=== PATIENT | female | born 1960 | race Caucasian/White ===

== ENCOUNTER 2020-03-25 06:50 | Outpatient (NON) | payer OTHER, SELFPAY ==
[2020-03-25 18:05] LABS: SARS-CoV-2 RNA PCR Negative
== END 2020-03-25 06:51 ==
LOC: ANHCOVIDDT 06:56
PROVIDERS: Visit Provider Family Medicine
DX: Z20.828 Contact with and (suspected) exposure to other viral communicable diseases (principal); R05 Cough
CPT/HCPCS: 87635; C9803; U0003

== ENCOUNTER → 2020-10-02 13:29 | Outpatient (CLI) | payer OTHER, SELFPAY ==
--- NOTE | ~2020-10-02 | MM_ITS ---
EXAMINATION: MM screening luis BI w brant HISTORY: Screening TECHNIQUE: Craniocaudal and mediolateral oblique 3-D tomosynthesis images were obtained and synthetic 2-D images were generated. CAD analysis was submitted and interpreted. COMPARISON: Comparison to multiple prior studies sequentially, with oldest reviewed study dated 10/2012. BREAST PARENCHYMAL COMPOSITION: Breast composed of scattered areas of fibroglandular density. FINDINGS: There are developing asymmetries lateral aspect of both breast on CC view only. There are n o suspicious calcifications. IMPRESSION: 1. Developing bilateral breast asymmetries lateral aspect of both breasts on CC views. 2. Additional mammographic views and possible breast ultrasound are recommended. BI-RADS Category 0: Incomplete: Needs additional imaging evaluation. Reviewed, dictated and finalized at location A. IMPRESSION: 1. Developing bilateral breast asymmetries lateral aspect of both breasts on CC views. 2. Additional mammographic views and possible breast ultrasound are recommended . BI-RADS Category 0: Incomplete: Needs additional imaging evaluation.
== END ==
PROVIDERS: Visit Provider Obstetrics & Gynecology
DX: Z12.31 Encounter for screening mammogram for malignant neoplasm of breast (principal); R92.8 Other abnormal and inconclusive findings on diagnostic imaging of breast
CPT/HCPCS: 77063; 77067

== ENCOUNTER → 2020-10-25 09:17 | Outpatient (CLI) | payer OTHER, SELFPAY ==
--- NOTE | ~2020-10-25 | MMUS_ITS ---
EXAMINATION: MM diagnostic mammo BI, US breast BI complete HISTORY: Developing bilateral breast mammographic asymmetries reported on 10/19/2020 bilateral screeni ng mammogram TECHNIQUE: Additional Full field ML and spot3-D tomosynthesis images of both breasts were performed a nd synthetic 2-D images were generated. Rolled medial and lateral craniocaudal views of both breasts. CAD analysis was submitted and interpreted. Bilateral complete breast ultrasound examination. COMPARISON: 10/02/2020, 03/01/2018, 02/10/2018 bilateral digital screening mammogram examinations MAMMOGRAM FINDINGS: No suspicious mass or architectural distortion, malignant calcification, skin thi ckening or retraction is detected. ULTRASOUND FINDINGS: No suspicious mass or shadowing of either breast is detected. IMPRESSION: 1. No mammographic evidence of malignancy 2. Routine mammographic screening is recommended. BI-RADS Category 1: Negative And Reviewed, dictated and finalized at location A. IMPRESSION: 1. No mammographic evidence of malignancy 2. Routine mammographic screening is recommended. BI-RADS Category 1: Negative And
== END ==
PROVIDERS: Visit Provider Obstetrics & Gynecology
DX: R92.8 Other abnormal and inconclusive findings on diagnostic imaging of breast (principal)
CPT/HCPCS: 76641; 77066

== ENCOUNTER → 2022-06-11 12:20 | Outpatient (CLI) | payer OTHER, SELFPAY ==
--- NOTE | ~2022-06-11 | MM_ITS ---
EXAMINATION: MM screening luis BI w brant HISTORY: Screening mammogram TECHNIQUE: Craniocaudal and mediolateral oblique 3-D tomosynthesis images were obtained and synthetic 2-D images were generated. CAD analysis was submitted and interpreted. COMPARISON: 10/25/2020 bilateral diagnostic mammogram and bilateral complete breast ultrasound 10/02/2020, 03/01/2019 bilateral screening mammogram examinations BREAST PARENCHYMAL COMPOSITION: There are scattered areas of fibroglandular density. FINDINGS: There is no evidence of suspicious mass, calcification, or architectural distortion to sugg est malignancy in either breast. There has been no suspicious interval change. IMPRESSION: 1. No mammographic evidence of malignancy. 2. Recommend routine screening mammography in one year. BI-RADS Category 1: Negative Reviewed, dictated and finalized at location A. RVISOR FRAME SAMPLE AND PATTERN
== END ==
PROVIDERS: PCP Family Medicine; Visit Provider Obstetrics & Gynecology
DX: Z12.31 Encounter for screening mammogram for malignant neoplasm of breast (principal)
CPT/HCPCS: 77063; 77067

== ENCOUNTER 2023-08-07 12:27 | Outpatient (CLI) | payer OTHER, SELFPAY ==
--- NOTE | ~2023-08-07 | MM_ITS ---
EXAMINATION: MM screening luis BI w brant HISTORY: Screening mammogram TECHNIQUE: Craniocaudal and mediolateral oblique 3-D tomosynthesis images were obtained and synthetic 2-D images were generated. CAD analysis was submitted and interpreted. COMPARISON: 06/11/2022 bilateral screening mammogram 10/25/2020 diagnostic bilateral mammogram and bilateral complete breast ultrasound examination 10/02/2020, 03/01/2019 bilateral screening mammogram examinations BREAST PARENCHYMAL COMPOSITION: There are scattered areas of fibroglandular density. FINDINGS: There is no evidence of suspicious mass, calcification, or architectural distortion to sugg est malignancy in either breast. There has been no suspicious interval change. IMPRESSION: 1. No mammographic evidence of malignancy. 2. Recommend routine screening mammography in one year. BI-RADS Category 1: Negative Reviewed, dictated and finalized at location A. 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
== END 2023-08-07 12:28 ==
LOC: MICIMG 12:27
PROVIDERS: PCP Obstetrics & Gynecology; Visit Provider Obstetrics & Gynecology
DX: Z12.31 Encounter for screening mammogram for malignant neoplasm of breast (principal)
CPT/HCPCS: 77063; 77067

== ENCOUNTER 2023-09-25 06:49 | Day surgery (SDC) | payer OTHER, SELFPAY ==
[2023-09-01 15:15] VITALS: BMI 29.1
[2023-09-19 10:32] VITALS: BMI 27.7
[2023-09-25 07:21] VITALS: BP 118/83; PULSE 75; RESP 18; TEMP 36.9; O2SAT 99; BMI 28.0
--- NOTE | 2023-09-25 07:24 | WPDANESEPPF ---
Anes - Initial Pre Proc Eval Procedure: Operation Date: 09/25/23 08:30 Proposed Procedures p Screening Colonoscopy - Sunday Pryor MD Date/Time: 09/25/23 07:24 Surgeon: Sunday Pryor MD Pre Op Diagnosis: Neoplasm screening Patient Data Age: 63 Gender: F Height: 1.68 m Weight: 78.8 kg Last Vital Signs Temp 36.9 C 09/25/23 07:21 Pulse 75 09/25/23 07:21 Resp 18 09/25/23 07:21 BP 118/83 09/25/23 07:21 Pulse Ox 99 09/25/23 07:21 O2 Del Method Room Air 09/25/23 07:21 Allergies Allergy/AdvReac Type Severity Reaction Status Date / Time Penicillins Allergy Intermediate Rash Verified 09/25/23 07:09 Sulfa (Sulfonamide Allergy Intermediate Rash Verified 09/25/23 07:09 Antibiotics) Home Medications Medication Instructions Recorded Confirmed Type estradiol 0.5 mg tablet (Estrace) 0.5 mg PO DAILY #90 tabs 01/06/23 09/25/23 Rx progesterone micronized 100 mg 100 mg PO QHS 90 days #90 caps 01/06/23 09/25/23 Rx capsule (Prometrium) valacyclovir 1 gram tablet 1,000 mg PO DAILY #90 tabs 03/31/23 09/19/23 Rx cetirizine 10 mg tablet 10 mg PO DAILY PRN FLARE UP 04/08/23 09/25/23 History montelukast 10 mg tablet See Rx Instructions .Route 07/02/23 09/25/23 Rx .COMPLEX #90 tabs ibuprofen 200 mg tablet 200 mg PO Q6H PRN Pain 09/19/23 09/25/23 History Patient hx anesthesia problems: none Family hx anesthesia problems: none Results Review: All pre-operative results and documents have been reviewed as part of the pre-operative evaluation. [facility] Past Medical History Medical History Arthritis Asthma Family history of colon cancer HSV-2 infection Hypercholesteremia Mild intermittent asthma Screening mammogram, encounter for Screening mammogram, encounter for Surgical History Surgical History Delivery by section (11/15/90) H/O colonoscopy (12/08/12) Family History Family History Grandparent Breast cancer maternal grandmother Mother Spinal stenosis Other Carcinoma of colon Social History Social History (Updated 09/25/23 @ 07:50 by Pro Emerson, ) Smoking status: Never smoker Second hand tobacco smoke exposure: No Alcohol intake: current Drinks per week: 10 Alcohol use details: 2 drinks/day Substance use: never Substance use type: does not use Do You Feel Safe in your Home?: Yes Lack of Transportation: No Lack of Food: Never True Current Housing: I Have Housing Concerned About Future Housing: No Difficulty Paying Gas/Electric Bills: No Difficulty Paying for Meds: No Currently Unemployed: No Education: Master's Degree or Higher Difficulty w/ Childcare or Family Care: No Living arrangements: with family Additional living arrangements comments: Occupation/Education: retired Gender identity (if verbalized by the patient): Female Sexual Orientation (if Verbalized by the Patient): Straight or Heterosexual Spiritual care concerns: No Anes - Eval Final PreProcedure Day of Procedure 09/25/23 07:24 Patient weight: overweight Heart: regular rate and rhythm Lungs: clear to auscultation Airway: Mallampati scale class II Neurological: alert and oriented Last oral intake: >/= 8 hours ASA classification: III Emergent: no Anesthetic plan: proceed Anesthesia type and monitoring: general GIVS and standard monitoring Results Review: All pre-operative results and documents have been reviewed as part of the pre-operative evaluation. Informed Consent: The patient's anesthetic plan and its attendant risks and benefits were discussed with the patient/family/POA. Questions were solicited and answers provided to the satisfaction of the patient/family/POA.
[2023-09-25] MEDS: LACTATED RINGERS 1,000 ML 150 ML IV CONT (07:33)
--- NOTE | 2023-09-25 08:29 | PM.HPGS ---
History of Present Illness History of Present Illness Consent: Risks, benefits, and alternatives have been discussed and questions answered. Patient agrees to proceed with procedure. Chief complaint: Family history of colon cancer Narrative: Sejal Cantu is a 63 year old female presents for screening colonoscopy. Patient's current weight appetite and bowel movements are normal. Patient denies abdominal pain. Has had no bleeding. Family history is significant that her father had colon cancer. Review of Systems Review of Systems: Review of systems noncontributory. [facility] Past Medical History Medical History Arthritis Asthma Family history of colon cancer HSV-2 infection Hypercholesteremia Mild intermittent asthma Screening mammogram, encounter for Screening mammogram, encounter for Surgical History Surgical History Delivery by section (11/15/90) H/O colonoscopy (12/08/12) Family History Family History Grandparent Breast cancer maternal grandmother Mother Spinal stenosis Other Carcinoma of colon Social History Social History (Updated 09/25/23 @ 07:50 by Pro Emerson, ) Smoking status: Never smoker Second hand tobacco smoke exposure: No Alcohol intake: current Drinks per week: 10 Alcohol use details: 2 drinks/day Substance use: never Substance use type: does not use Do You Feel Safe in your Home?: Yes Lack of Transportation: No Lack of Food: Never True Current Housing: I Have Housing Concerned About Future Housing: No Difficulty Paying Gas/Electric Bills: No Difficulty Paying for Meds: No Currently Unemployed: No Education: Master's Degree or Higher Difficulty w/ Childcare or Family Care: No Living arrangements: with family Additional living arrangements comments: Occupation/Education: retired Gender identity (if verbalized by the patient): Female Sexual Orientation (if Verbalized by the Patient): Straight or Heterosexual Spiritual care concerns: No Meds Home Medications and Allergies Home Medications Medication Instructions Recorded Confirmed Type estradiol 0.5 mg tablet (Estrace) 0.5 mg PO DAILY #90 tabs 01/06/23 09/25/23 Rx progesterone micronized 100 mg 100 mg PO QHS 90 days #90 caps 01/06/23 09/25/23 Rx capsule (Prometrium) valacyclovir 1 gram tablet 1,000 mg PO DAILY #90 tabs 03/31/23 09/19/23 Rx cetirizine 10 mg tablet 10 mg PO DAILY PRN FLARE UP 04/08/23 09/25/23 History montelukast 10 mg tablet See Rx Instructions .Route 07/02/23 09/25/23 Rx .COMPLEX #90 tabs ibuprofen 200 mg tablet 200 mg PO Q6H PRN Pain 09/19/23 09/25/23 History Allergies Allergy/AdvReac Type Severity Reaction Status Date / Time Penicillins Allergy Intermediate Rash Verified 09/25/23 07:09 Sulfa (Sulfonamide Allergy Intermediate Rash Verified 09/25/23 07:09 Antibiotics) Vital Signs Vital Signs - 24 hr 09/25/23 07:21 Temperature 98.5 F Pulse Rate 75 Respiratory Rate 18 Blood Pressure 118/83 Pulse Oximetry 99 Oxygen Delivery Room Air Exam Narrative: Physical exam reveals patient to be alert. Vital signs stable. HEENT exam is unremarkable. Patient is anicteric. Lungs are clear to auscultation and is without murmur or extra sounds. Abdomen bowel sounds are present soft nontender with no organomegaly. Digital and External rectal exam normal. Assessment and Plan Assessment and plan (1) Family history of colon cancer: Code(s): Z80.0 - Family history of malignant neoplasm of digestive organs Status: Acute Assessment and Plan: Patient's father had colon cancer. Suggest follow-up colonoscopy at 5 year intervals. Colonoscopy to be performed today.
[2023-09-25 09:07] VITALS: BP 115/76; PULSE 72; RESP 20; O2SAT 99
[2023-09-25 09:17] VITALS: BP 112/77; PULSE 72; RESP 18; O2SAT 100
[2023-09-25 09:27] VITALS: BP 121/80; PULSE 64; RESP 18; O2SAT 100
--- NOTE | 2023-09-25 11:27 | WPDANESPN ---
Anes - Prog Note Post-Op Date/Time: 09/25/23 11:27 Cardiovascular status: normal Respiratory status: normal Airway patency: baseline Mental status: baseline Post-Op hydration status: normal Vital Signs: Last Vital Signs Temp 36.9 C 09/25/23 07:21 Pulse 64 09/25/23 09:27 Resp 18 09/25/23 09:27 BP 121/80 09/25/23 09:27 Pulse Ox 100 09/25/23 09:27 O2 Del Method Room Air 09/25/23 09:27 Pain Score (VAS): 0 I/O: Intake & Output 09/24/23 09/25/23 09/25/23 23:59 07:59 15:59 Intake Total 850 Balance 850 Post-procedural complaints: none Patient Feedback: Patient satisfied with anesthetic care. Other Findings: Patient vital signs back to baseline. Patient denies nausea and vomiting. Patient's pain under control. Patient OK for discharge.
== END 2023-09-25 09:33 | disposition home or self-care (01) ==
PROVIDERS: PCP Family Medicine; Visit Provider Internal Medicine Gastroenterology
PROC: 0DJD8ZZ Inspection of Lower Intestinal Tract, Via Natural or Artificial Opening Endoscopic (ICD-10-PCS; CPT 45378; principal; 2023-09-25 08:30)
DX: Z80.0 Family history of malignant neoplasm of digestive organs (principal); K64.8 Other hemorrhoids
CPT/HCPCS: 45378

== ENCOUNTER 2024-03-14 13:43 | Emergency (ER) | payer OTHER, SELFPAY ==
[2024-03-14 13:53] VITALS: BP 128/88; PULSE 80; RESP 18; TEMP 36.8; O2SAT 99
--- NOTE | 2024-03-14 13:55 | ED_ITS ---
HPI - Skin/Abscess/Foreign Bdy General Chief complaint: Skin/Abscess/Foreign Body Stated complaint: Insect Bite Time Seen by Provider: 03/14/24 13:53 Source: patient and RN notes reviewed Mode of arrival: ambulatory Limitations: dementia History of Present Illness HPI narrative: 53-year-old female reports being bitten or stung by a insect the right forearm Friday. She reports in the area becoming more warm, tender, swollen. She reports itchiness. She reports she took relief. She takes a antihistamine daily. She denies swollen lips, swollen tongue, trouble breathing. She denies other rash. MD complaint: other (Redness) Related Data Home Medications Medication Instructions Recorded Confirmed cetirizine 10 mg tablet 10 mg PO DAILY PRN FLARE UP 04/08/23 03/14/24 ibuprofen 200 mg tablet 200 mg PO Q6H PRN Pain 09/19/23 03/14/24 Allergies Allergy/AdvReac Type Severity Reaction Status Date / Time Penicillins Allergy Intermediate Rash Verified 09/25/23 07:09 Sulfa (Sulfonamide Allergy Intermediate Rash Verified 09/25/23 07:09 Antibiotics) Review of Systems Review of Systems: CONSTITUTIONAL: Denies malaise, chills, sweats, or fever. EYES: Denies redness, or discharge. ENT: Denies rhinorrhea, congestion, swollen lips, swollen tongue CARDIOVASCULAR: Denies chest pain, palpitations, or edema. RESPIRATORY: Denies cough or dyspnea. GASTROINTESTINAL: Denies abdominal pain, nausea, vomiting SKIN: Reports redness, swelling, warmth, tenderness, itchiness to the right forearm. Denies purulent drainage, vesicles, bullae, numbness, pain beyond proportion MUSCULOSKELETAL: Denies joint pain or myalgia. NEUROLOGIC: Denies headache. All systems reviewed & are unremarkable except as noted in HPI and below PMFSH Past Medical History Medical History Arthritis Asthma Family history of colon cancer HSV-2 infection Hypercholesteremia Mild intermittent asthma Screening mammogram, encounter for Screening mammogram, encounter for Surgical History Surgical History Delivery by section (11/15/90) H/O colonoscopy (12/08/12) Family History Family History Grandparent Breast cancer maternal grandmother Mother Spinal stenosis Other Carcinoma of colon Social History Social History (Updated 09/25/23 @ 07:50 by Pro Emerson DO) Smoking status: Never smoker Second hand tobacco smoke exposure: No Alcohol intake: current Drinks per week: 10 Alcohol use details: 2 drinks/day Substance use: never Substance use type: does not use Do You Feel Safe in your Home?: Yes Lack of Transportation: No Lack of Food: Never True Current Housing: I Have Housing Concerned About Future Housing: No Difficulty Paying Gas/Electric Bills: No Difficulty Paying for Meds: No Currently Unemployed: No Education: Master's Degree or Higher Difficulty w/ Childcare or Family Care: No Living arrangements: with family Additional living arrangements comments: Occupation/Education: retired Gender identity (if verbalized by the patient): Female Sexual Orientation (if Verbalized by the Patient): Straight or Heterosexual Spiritual care concerns: No Comments At time of signature, agree with nursing past medical, surgical, social and family history. There is no relevant family history pertinent to the presenting complaint Exam Narrative: GENERAL: Well-appearing, well-nourished, and in no acute distress. HEAD: Normocephalic, atraumatic. EYES: PERRLA, conjunctivae clear ENT: Mucous membranes moist. NECK: Supple. No lymphadenopathy CHEST: Clear to auscultation. No respiratory distress. HEART: Regular rate and rhythm. SKIN: Warm, dry. Approximately 10 cm in diameter Erythema, induration, tenderness, warmth with sharp margins noted to the right forearm. No vesicles, bullae, necrosis, ecchymosis, crepitus noted. NEURO: Alert and oriented x3. PSYCH: Normal mood and affect Course Course Emergency Course: Patient is aware of diagnosis, understands and agrees to treatment plan. Anticipatory guidance given. Patient agrees to follow-up as directed and is aware of reasons to seek care at the emergency department. Portions of this record may have been created with voice recognition software Level of Care: Express Care Visit Vital Signs Vital signs: Vital Signs Temperature 98.3 F 03/14/24 13:53 Pulse Rate 80 03/14/24 13:53 Respiratory Rate 18 03/14/24 13:53 Blood Pressure 128/88 03/14/24 13:53 Pulse Oximetry 99 03/14/24 13:53 Oxygen Delivery Room Air 03/14/24 13:53 Temperature 98.3 F 03/14/24 13:53 Pulse Rate 80 03/14/24 13:53 Respiratory Rate 18 03/14/24 13:53 Blood Pressure 128/88 03/14/24 13:53 Pulse Oximetry 99 03/14/24 13:53 Oxygen Delivery Room Air 03/14/24 13:53 Reviewed. MDM - Skin/Abscess/Foreign Bdy MDM Narrative Medical decision making narrative: I evaluated this in the [facility] care. History is obtained from patient who is an independent historian and physical exam was performed.? Available medical records were reviewed. ? Exam findings and relevant testing show no acute concerns or changes; patient is non-toxic appearing and is in no distress. No risk factors or findings concerning for epidural abscess, diskitis, vertebral osteomyelitis, cord compression, cauda equina, vertebral fracture or bone malignancy, AAA, or pyelonephritis. Patient instructed to consider further imaging and workup through their primary care physician as an outpatient if symptoms persist. Does not appear at this time to be erythema multiforme, bullous, SJS, TEN; no evidence at this time to suggest RMSF, NSTI, endocarditis or Lyme disease; patient looks well, nontoxic and is tolerating oral intake; no neurologic signs or symptoms; no headache, photophobia or neck pain; afebrile.? Patient does not have history of of penetrating trauma, laceration, blunt trauma, recent surgery, immunosuppression, malignancy, obesity, alcoholism, corticosteroid use.? Discussed the importance of follow-up, patient agrees; question, cellulitis versus necrotizing soft tissue infection versus abscess.?? Patient is appropriate for outpatient treatment and follow-up. Critical Care Time Critical Care Time Critical Care Time: No Discharge Plan Discharge Clinical Impression: Infected insect bite or sting Patient Disposition: Home, Self-Care Condition: Stable Instructions: Antibiotic Form, Cellulitis (ED) Additional Instructions: Please follow up with your Primary Care Doctor within 48-72 hours - call for an appointment. Rest and elevate affected area; apply moist heat 3-4 times daily for 10-15 minutes. Take Motrin 600mg every 8 hours with food for pain. Please take Antibiotics as directed. If you experience any worsening redness, swelling, streaking (red lines), fever or chills please go to the ER Prescriptions: New triamcinolone acetonide 0.1 % cream 1 applic TOPICAL BID 7 Days Qty: 80 0RF cephalexin 500 mg capsule 500 mg PO QID 10 Days Qty: 40 0RF No Action cetirizine 10 mg tablet 10 mg PO DAILY PRN (Reason: FLARE UP) valacyclovir 1 gram tablet 1,000 mg PO DAILY Qty: 90 3RF montelukast 10 mg tablet See Rx Instructions .ROUTE .COMPLEX Qty: 90 1RF Dose Instruction: TAKE 1 TABLET BY MOUTH EVERY DAY IN THE EVENING Rx Instructions: TAKE 1 TABLET BY MOUTH EVERY DAY IN THE EVENING estradiol [Estrace] 0.5 mg tablet 0.5 mg PO DAILY Qty: 90 3RF progesterone micronized [Prometrium] 100 mg capsule 200 mg PO QHS 90 Days Qty: 180 3RF ibuprofen 200 mg Tablet 200 mg PO Q6H PRN (Reason: Pain) Follow-up/Referrals: Hamilton Toro MD [Primary Care Provider] - Time of Disposition: 14:02
== END 2024-03-14 14:05 | disposition home or self-care (01) ==
PROVIDERS: Emergency Provider Nurse Practitioner; PCP Family Medicine
DX: L08.9 Local infection of the skin and subcutaneous tissue, unspecified (principal); T63.481A Toxic effect of venom of other arthropod, accidental (unintentional), initial encounter; M19.90 Unspecified osteoarthritis, unspecified site; E78.00 Pure hypercholesterolemia, unspecified; J45.909 Unspecified asthma, uncomplicated
CPT/HCPCS: 99213; G0463

== ENCOUNTER 2024-08-03 14:19 | Outpatient (CLI) | payer OTHER, SELFPAY ==
[2024-08-03 15:48] LABS: Alanine Aminotransferase 14 U/L (6-35); Albumin Level 4.7 g/dL (3.5-5.1); Alkaline Phosphatase 66 U/L (38-126); Anion Gap 13 mmol/L (4-12); Aspartate Amino Transferase 21 U/L (14-36); Bilirubin,Total 0.9 mg/dL (0.2-1.3); Blood Urea Nitrogen 14 mg/dL (7-17); Calcium 9.6 mg/dL (8.4-10.2); Carbon Dioxide 24 mmol/L (22-30); Chloride 100 mmol/L (98-107); Cholesterol 299 mg/dL (0-200); Estimated Glomerular Filt Rate > 60; Glucose 96 mg/dL (65-110); HDL Direct 102 mg/dL; Potassium 3.8 mmol/L (3.4-5.0); Sodium 137 mmol/L (137-145); Triglycerides 134 mg/dL (<150)
[2024-08-03 15:58] LABS: LDL Cholesterol Direct 168 mg/dL
[2024-08-04 11:49] LABS: DHEA-Sulfate 162 mcg/dL (9-118)
== END 2024-08-03 14:20 | disposition home or self-care (01) ==
LOC: ANHLAB 14:21
PROVIDERS: PCP Family Medicine; Visit Provider Obstetrics & Gynecology
DX: R68.82 Decreased libido (principal); Z78.0 Asymptomatic menopausal state
CPT/HCPCS: 36415; 80053; 80061; 82627; 82670; 84402; 84403

== ENCOUNTER 2024-10-14 13:25 | Outpatient (CLI) | payer OTHER, SELFPAY ==
--- NOTE | ~2024-10-14 | MM_ITS ---
EXAMINATION: MM screening luis BI w brant HISTORY: Screening TECHNIQUE: Craniocaudal and mediolateral oblique 3-D tomosynthesis images were obtained and synthetic 2-D images were generated. CAD analysis was submitted and interpreted. COMPARISON: Comparison to multiple prior studies sequentially, with oldest reviewed study dated 02/10. BREAST PARENCHYMAL COMPOSITION: Not dense: There are scattered areas of fibroglandular density. FINDINGS: There is no evidence of suspicious mass, calcification, or architectural distortion to sugg est malignancy in either breast. There has been no suspicious interval change. IMPRESSION: 1. No mammographic evidence of malignancy. 2. Recommend routine screening mammography in one year. BI-RADS Category 1: Negative Reviewed, dictated and finalized at location A.
== END 2024-10-14 13:26 | disposition home or self-care (01) ==
LOC: MICIMG 13:25
PROVIDERS: PCP Obstetrics & Gynecology; Visit Provider Obstetrics & Gynecology
DX: Z12.31 Encounter for screening mammogram for malignant neoplasm of breast (principal)
CPT/HCPCS: 77063; 77067

== ENCOUNTER 2024-12-15 14:25 | Outpatient (CLI) | payer OTHER, SELFPAY ==
--- OUTSIDE RECORDS SUMMARY | 2024-12-15 14:31 | XMS_ITS | Continuity of Care Document ---
Author Organization [facility] Address [address] [place] [address] [place] [address] Phone Care Team Providers Care Journeyman Patternmaker Name Role Phone Boyd OD, Sunday Unavailable Unavailable Procedures Procedure Date Office/outpatient Visit, Est Eye Exam, New Patient Advance Directives Directive Yes / No Effective Date File Name No Information Encounters Encounter Description Practice Location Reason(s) For Visit Diagnoses Date Provider Providers Copied on Encounter Office/outpat ient Visit, Est [facility], [address] [place] [address] [address], [place], [place], [id number], [place] tel:[phone] SEC [facility] [place] No Information 3-200 9 Boyd OD Sunday. [address] , [address], [place], [address], [place]. tel:[phone] [facility], [address] [place] [address] [address], [place], [place], [id number], [place] tel:[phone] [facility] [place] No Information 7-200 9 Boyd OD Sunday. [address] , [address], [place], [address], [place]. tel:[phone] Family History Family Member Type Diagnosis Age At Onset No Information Payers Payer name Insurance type Covered republican ID Authoriza tiyasmin(s) [facility] Commercial CI [id number] [facility] CI [id number] Social History Type Description Quantity Date Captured Comments Sex Female Smoking Status No Information Chief Complaint And Reason For Visit No Information Reason For Referral Reason For Referral No Information History Of Present Illness Encounter Date Complaint History Of Prese nt Illness No Information Functional Status Date Functional Assessmen t No Information Instructions Date Instruction Additional Infor mation No Information Assessments Type Assessment Date No Information Patient Care Teams Name Effective Dates (start - stop) Status Members No Information
[2024-12-15 15:54] LABS: Alanine Aminotransferase 16 U/L (6-35); Albumin Level 4.4 g/dL (3.5-5.1); Alkaline Phosphatase 63 U/L (38-126); Anion Gap 10 mmol/L (4-12); Aspartate Amino Transferase 27 U/L (14-36); Bilirubin,Total 0.6 mg/dL (0.2-1.3); Blood Urea Nitrogen 12 mg/dL (7-17); Calcium 9.5 mg/dL (8.4-10.2); Carbon Dioxide 23 mmol/L (22-30); Chloride 102 mmol/L (98-107); Estimated Glomerular Filt Rate > 60; Glucose 111 mg/dL (65-110); Potassium 4.0 mmol/L (3.4-5.0); Sodium 135 mmol/L (137-145); Total Protein 8.1 g/dL (6.3-8.2)
[2024-12-18 11:08] LABS: Free Testosterone (Direct) 0.8 pg/mL (0.0-4.2)
== END 2024-12-15 14:26 | disposition home or self-care (01) ==
LOC: ANHLAB 14:26
PROVIDERS: PCP Family Medicine; Visit Provider Obstetrics & Gynecology
DX: R68.82 Decreased libido (principal)
CPT/HCPCS: 36415; 80053; 82627; 84402